=== PATIENT | female | born 1985 | race Caucasian/White ===

== ENCOUNTER → 2020-07-12 10:33 | Outpatient (BNVA) | payer OTHER, SELFPAY | PROVIDERS: PCP Internal Medicine; Visit Provider Advanced Practice Midwife | DX: Z76.89 Persons encountering health services in other specified circumstances (principal) ==

== ENCOUNTER → 2020-07-25 11:07 | Outpatient (BNVA) | payer OTHER, SELFPAY | PROVIDERS: Visit Provider Advanced Practice Midwife | DX: Z30.42 Encounter for surveillance of injectable contraceptive (principal) | CPT/HCPCS: 99211; J1050 ==

== ENCOUNTER → 2020-08-02 10:01 | Outpatient (BNVA) | payer OTHER, SELFPAY | PROVIDERS: Visit Provider Obstetrics & Gynecology | DX: Z76.89 Persons encountering health services in other specified circumstances (principal) ==

== ENCOUNTER → 2020-09-06 11:26 | Outpatient (BNVA) | payer OTHER, SELFPAY | PROVIDERS: PCP Internal Medicine; Visit Provider Obstetrics & Gynecology | DX: Z30.09 Encounter for other general counseling and advice on contraception (principal) | CPT/HCPCS: 99212 ==

== ENCOUNTER 2020-09-29 06:10 | Day surgery (SDC) | payer OTHER, SELFPAY ==
[2020-09-02 12:28] VITALS: BMI 30.4
--- NOTE | 2020-09-07 09:54 | P.CONAN_ITS ---
HPI - Anesthesia Eval Consult details Narrative: 35yo F for bilat Salpingectomy Laproscopic Rescheduled to 09/29/20 [facility] Past Medical History Medical History Depression Hypoglycemia Insomnia Migraine Vitamin B12 deficiency Vitamin D deficiency Family History Family History Father HTN (hypertension) Mother Diabetes mellitus Fibromyalgia Heart disease Acute rheumatoid arthritis Uterine cancer CVD (cardiovascular disease) Maternal Grandmother Uterine cancer Alzheimer disease Paternal Grandfather CVD (cardiovascular disease) Colon cancer Surgical History Surgical History History of 3 sections Hx of adenoidectomy Hx of tonsillectomy Social History Social History Alcohol intake: never Smoking Status: Never smoker Second Hand Smoke Exposure: No Gender identity: female Meds Allergies Allergy/AdvReac Type Severity Reaction Status Date / Time topiramate [TOPIRAMATE] Allergy Intermediate CHEST Verified 09/06/20 11:31 PAIN/A-FIB/RESPIRATORY DISTRESS, palpitations aspirin [ASPIRIN] Allergy Unknown SWOLLEN Verified 09/06/20 11:31 EYES, eye swelling Home Medications Medication Instructions Recorded Confirmed Type cholecalciferol (vitamin D3) 50 50 mcg PO DAILY 07/12/20 History mcg (2,000 unit) tablet ferrous sulfate 325 mg (65 mg 325 mg PO DAILY 07/12/20 History iron) tablet norethindrone (contraceptive) 0.35 0.35 mg PO DAILY 07/12/20 History mg tablet sertraline 25 mg tablet 25 mg PO DAILY 07/12/20 History sumatriptan succinate 50 mg tablet mg PO 07/12/20 History Exam Exam Date and Time: September 07, 2020 0954 Height,Weight and Vital Signs: Height 5 ft 1 in Weight 73.028 kg
--- NOTE | 2020-09-28 09:32 | HO.ANESPROP2 ---
HPI - Anesthesia Eval Consult details Narrative: 35yo F for bilat Salpingectomy Laproscopic PMFSH Past Medical History Medical History Depression Hypoglycemia Insomnia Migraine Vitamin B12 deficiency Vitamin D deficiency Family History Family History Father HTN (hypertension) Mother Diabetes mellitus Fibromyalgia Heart disease Acute rheumatoid arthritis Uterine cancer CVD (cardiovascular disease) Maternal Grandmother Uterine cancer Alzheimer disease Paternal Grandfather CVD (cardiovascular disease) Colon cancer Surgical History Surgical History History of 3 sections Hx of adenoidectomy Hx of tonsillectomy Social History Social History Alcohol intake: never Smoking Status: Never smoker Second Hand Smoke Exposure: No Gender identity: female Meds Allergies Allergy/AdvReac Type Severity Reaction Status Date / Time topiramate [TOPIRAMATE] Allergy Intermediate CHEST Verified 09/06/20 11:31 PAIN/A-FIB/RESPIRATORY DISTRESS, palpitations aspirin [ASPIRIN] Allergy Unknown SWOLLEN Verified 09/06/20 11:31 EYES, eye swelling Home Medications Medication Instructions Recorded Confirmed Type cholecalciferol (vitamin D3) 50 50 mcg PO DAILY 07/12/20 History mcg (2,000 unit) tablet ferrous sulfate 325 mg (65 mg 325 mg PO DAILY 07/12/20 History iron) tablet norethindrone (contraceptive) 0.35 0.35 mg PO DAILY 07/12/20 History mg tablet sertraline 25 mg tablet 25 mg PO DAILY 07/12/20 History sumatriptan succinate 50 mg tablet mg PO 07/12/20 History Exam Exam Date and Time: September 28, 2020 0932 Height,Weight and Vital Signs: Height 5 ft 1 in Weight 73.028 kg Assessment and Plan Assessment Anesthesia Assessment: Chart Reviewed
[2020-09-29] VITALS (10 sets, daily range): BP systolic 107–133; BP diastolic 68–87; PULSE 70–87; RESP 17–20; TEMP 36.4–36.9; O2SAT 96–98
[2020-09-29 06:24] LABS: UPreg QC Valid YES; Urine Pregnancy NEGATIVE (NEGATIVE)
[2020-09-29] MEDS: Lactated Ringers 1,000 ML 100 ML IVCONT (06:37)
[2020-09-29] MEDS: Acetaminophen 325 MG TABLET 650 MG PO (06:37)
--- NOTE | 2020-09-29 07:13 | HO.ANESPROP2 ---
[facility] Past Medical History Medical History Depression Hypoglycemia Insomnia Migraine Vitamin B12 deficiency Vitamin D deficiency Family History Family History Father HTN (hypertension) Mother Diabetes mellitus Fibromyalgia Heart disease Acute rheumatoid arthritis Uterine cancer CVD (cardiovascular disease) Maternal Grandmother Uterine cancer Alzheimer disease Paternal Grandfather CVD (cardiovascular disease) Colon cancer Surgical History Surgical History History of 3 sections Hx of adenoidectomy Hx of tonsillectomy Social History Social History Alcohol intake: never Smoking Status: Never smoker Second Hand Smoke Exposure: No Use of substances other than those prescribed or required for medical reasons: No Advance Directives: No Advance Directives Information Provided: No Advance Directives on File: No Gender identity: female Meds Allergies Allergy/AdvReac Type Severity Reaction Status Date / Time topiramate [TOPIRAMATE] Allergy Intermediate CHEST Verified 09/06/20 11:31 PAIN/A-FIB/RESPIRATORY DISTRESS, palpitations aspirin [ASPIRIN] Allergy Unknown SWOLLEN Verified 09/06/20 11:31 EYES, eye swelling Home Medications Medication Instructions Recorded Confirmed Type cholecalciferol (vitamin D3) 50 50 mcg PO DAILY 07/12/20 History mcg (2,000 unit) tablet ferrous sulfate 325 mg (65 mg 325 mg PO DAILY 07/12/20 History iron) tablet norethindrone (contraceptive) 0.35 0.35 mg PO DAILY 07/12/20 History mg tablet sertraline 25 mg tablet 25 mg PO DAILY 07/12/20 History sumatriptan succinate 50 mg tablet mg PO 07/12/20 History Exam Exam Date and Time: September 29, 2020 0713 Height,Weight and Vital Signs: Height 5 ft 1 in Weight 73.028 kg Last Vital Signs Temp 97.7 F 09/29/20 06:13 Pulse 87 09/29/20 06:13 Resp 18 09/29/20 06:13 BP 133/87 09/29/20 06:13 Pulse Ox 98 09/29/20 06:13 Pertinent Lab Results Pertinent Lab Results: Laboratory Tests 09/29/20 06:10 Urine Test NEGATIVE Airway Mallampati Class: II TM Dist: >3cm Neck ROM: Full Assessment and Plan Assessment Anesthesia Assessment: Anesthesia Plan Discussed and Chart Reviewed Final Anesthetic Review NPO: Yes ASA Class: II Final Preanesthetic Review: No Changes in Pt Med Stat, Meds/Allgs Chart Reviewed, Consent Obtained/Reviewed and Anes Risks/Benef Reviewed Patient Risk: Low Procedure Risk: Low Assessment/Block/Sedation in SS: Assess/Block/Sedation-SS Anesthetic Plan Anesthetic Plan: GA Disposition: Standard PACU
--- NOTE | 2020-09-29 07:18 | MHC.SHP ---
Pre-Procedural Eval Section A The patient is an INPATIENT: No Changes since office visit: No Cold of Flu in the past 2 weeks, No New Medical Problems, No Changes in Medication and No Patient answered all questions The History & Physical has been completed within 30 days and I have reviewed it.: Yes Section B Chief Complaint: permanent sterilization Allergies: Allergies Allergy/AdvReac Type Severity Reaction Status Date / Time topiramate [TOPIRAMATE] Allergy Intermediate CHEST Verified 09/06/20 11:31 PAIN/A-FIB/RESPIRATORY DISTRESS, palpitations aspirin [ASPIRIN] Allergy Unknown SWOLLEN Verified 09/06/20 11:31 EYES, eye swelling Plan I have reviewed the history and physical and performed a pertinent physical examination on my patient. No changes have occurred unless specified.
--- NOTE | 2020-09-29 07:20 | PC.NURSE ---
PT VOIDED PRIOR TO SUGERY
[2020-09-29] MEDS: oxyCODONE HCl Immed Release 5 MG TABLET PO (09:18)
[2020-09-29] MEDS: fentaNYL citrate/PF 100 MCG/2 ML VIAL 50 MCG IVPUSH (09:19)
--- NOTE | 2020-09-29 09:19 | W.PM.OPN ---
Operative Note Operative Note Date of Service: 09/29/20 Narrative: Ms. Madrigal is a 35 year old who has completed her family planning and desires a permanent form of sterilization. Surgical Risks: The patient was informed of the risks and benefits of the procedure. Risks included but were not limited to bleeding, infection, injury to the vulva, vagina, or cervix, and uterine perforation. The patient was counseled on the risk of sterilization failure being about 1% on average. The patient was informed that in the event a occurs, the risk of ectopic is increased. The patient expressed understanding of the risks involved, all questions were answered, and the patient consented to the procedure. The patient had valid sterilization consent at the time of the procedure. The patient was taken to the operating room where a time out was performed to confirm correct patient and correct procedure. General anesthesia was established. The patient was then positioned on the operating table in the dorsal lithotomy position with the legs supported using stirrups. All pressure points were padded and a warm blanket was placed to maintain control of core body temperature. The patient was then prepped and draped in the usual sterile fashion. A red rubber catheter was inserted and minimal urine obtained as she had voided just prior to the procedure. Attention was turned to the abdomen where a 5mm vertical infraumbilical incision was made. The 5mm trocar was introduced under direct visualization using the laparoscopy within the sleeve of the trocar. After intra-abdominal placement had been confirmed, the trocar was removed leaving the sleeve in place. The camera was introduced and pneumoperitoneum was established using carbon dioxide. Inspection of the abdominal cavity showed no evidence of injury to the bowel, bladder, or vasculature. Attention was turned to the pelvis. The patient was placed into Trendelenburg position. An adhesion was noted just left of the midline to the anterior abdominal wall in the pelvis. On the left side, the ovary and tube were adherent to the pelvic side wall. On the right, the tube and ovary appeared grossly normal. A small incision was made approximately 2cm superior and 2cm medial to the left ASIS. A 5mm trocar was introduced through this incision under direct visualization with the laparoscope. A small incision was made approximately 2cm superior and 2cm medial to the right ASIS. A 5mm trocar was introduced through this incision under direct visualization with the laparoscope. The distal end of the right tube was grasped and lifted up and being careful to avoid the ovarian vessels, salpingectomy was performed walking the Ligasure device from the distal to the medial end of the tube, where it was cauterized and cut from the uterus at the cornua and removed through the trocar. Attention was then turned to the left, where the fimbriated end of the tube was visual as well as the cornual end; however, the intervening portion was engulfed in scar tissue and adherent to the pelvic side wall. The fimbriated end of the tube was grasped and used to reflect the ovary away from the side wall, where the adhesion was noted to be able to be seen through. This was dissected sharply with the Ligasure, being careful to avoid the ovarian vessels. The fimbriated end of the tube was dissected from the scar tissue using the Ligasure device. Once the ovary was freed from the side wall, the remaining portion of the tube was then visible and salpingectomy of the remaining tube was performed walking the Ligasure device from the distal to the medial end of the tube, where it was cauterized and cut from the uterus at the cornua and removed through the trocar. The tubes were sent to pathology for analysis. The ovary was inspected and good hemostasis noted; there was dark blood noted at the side wall and the lateral cut end of the scar tissue. No active bleeding was identified but the area appeared red. Surgicel was applied and good hemostasis noted. The pneumoperitoneum was then evacuated. The laparoscope was removed and the trocar sleeves were removed. A total of 20cc Bupivicaine 0.5% was injected through the three incisions for local anesthesia. The skin incisions were closed with a single interrupted stitch using 3-0 vicryl and Dermabond was then applied. Good hemostasis was confirmed. The patient was transferred to the recovery room in stable condition. All needle, sponge, and instrument counts were noted to be correct x2 at the end of the procedure.
--- NOTE | 2020-09-29 11:20 | HO.POSTANES ---
Post Anesthesia Evaluation Post Anesthesia Evaluation Vital Signs: Vital Signs Temp Pulse Resp BP Pulse Ox 09/29/20 10:06 97.6 F 74 17 117/71 97 09/29/20 09:51 97.6 F 77 17 112/70 97 09/29/20 09:36 70 17 114/69 96 09/29/20 09:26 72 19 107/68 96 09/29/20 09:21 72 18 115/77 96 09/29/20 09:19 17 09/29/20 09:16 74 17 126/75 96 09/29/20 09:11 79 17 126/83 98 09/29/20 09:06 98.4 F 85 20 132/84 97 09/29/20 06:13 97.7 F 87 18 133/87 98 Anesthesia: General Endotracheal-GETA Mental Status: Awake Pain Control: Satisfactory Nausea/Vomiting: None Hydration: Adequate Anesthesia-Related Issues: No Anes. Related Issues
== END 2020-09-29 10:24 | disposition home or self-care (01) ==
LOC: HO.SSS 06:10
PROVIDERS: Nurse Practitioner; PCP Internal Medicine; Visit Provider Obstetrics & Gynecology
PROC: (CPT 58661; principal; 2020-09-29 07:30)
DX: Z30.2 Encounter for sterilization (principal); K66.0 Peritoneal adhesions (postprocedural) (postinfection); Z80.49 Family history of malignant neoplasm of other genital organs; Z88.8 Allergy status to other drugs, medicaments and biological substances
CPT/HCPCS: 58661; 81025; 88302; J0131; J1100; J1885; J2250; J2405; J3010

== ENCOUNTER 2021-09-14 10:32 | Outpatient (REF) | payer OTHER, SELFPAY ==
[2021-09-14 10:51] LABS: MANUAL DIFF FLAG NO
[2021-09-14 11:09] LABS: Basophils Percent Auto 0.1 % (0-2); Hematocrit 36.2 % (37.0-47.0); Hemoglobin 11.5 g/dl (12.0-16.0); Imm Gran Abs Auto 0.02 X10*3/uL (0.00-0.03); Imm Gran Pct Auto 0.3 % (0.0-0.4); Lymphocytes Absolute Auto 2.2 X10*3/uL (1.2-4.9); Lymphocytes Percent Auto 29.4 % (20-40); Mean Corpuscular HGB Conc 31.8 g/dl (31.0-35.0); Mean Corpuscular Hemoglobin 25.3 pg (27.0-33.0); Mean Corpuscular Volume 79.6 fL (80.0-98.0); Mean Platelet Volume 10.4 fL (9.4-12.3); Monocytes Absolute Auto 0.5 X10*3/uL (0.1-1.2); Monocytes Percent Auto 6.1 % (2-11); Neutrophils Absolute Auto 4.7 x10*3/uL (2.0-8.3); Neutrophils Percent Auto 64.1 % (45-73); Platelet Count 247 X10*3/uL (160-400); Red Blood Count 4.55 X10*6/uL (4.20-5.50); Red Cell Distribution Width 13.6 % (11.0-16.0); White Blood Count 7.3 X10*3/uL (4.8-10.8)
[2021-09-14 11:57] LABS: Alanine Aminotransferase 39 U/L (0-31); Alkaline Phosphatase 129 U/L (39-117); Anion Gap 12 (12-20); Aspartate Amino Transferase 20 U/L (5-31); Bilirubin Total 0.5 mg/dL (0.0-1.0); Blood Urea Nitrogen 6 mg/dL (9-16); Calcium 9.1 mg/dL (8.4-10.2); Carbon Dioxide 24 mmol/L (22-29); Chloride 107 mmol/L (96-108); Cholesterol 165 mg/dL; Estimated Glomerular Filt Rate > 60; Glucose Fasting 107 mg/dL (60-99); HDL Cholesterol 31 mg/dL; Iron 50 mcg/dL (30-160); LDL Cholesterol Calculated 71 mg/dl; Percent Iron Saturation 11 % (15-50); Potassium 3.9 mmol/L (3.3-5.1); Sodium 139 mmol/L (135-145); Total Iron Binding Capacity 463 mcg/dL (228-428); Total Protein 7.1 g/dL (6.5-8.0); Triglycerides 316 mg/dL; Unsaturated Iron Binding 413 ug/dL
[2021-09-14 11:58] LABS: Thyroid Stimulating Hormone 1.16 uIU/mL (0.32-4.0)
[2021-09-14 12:24] LABS: Folate 15.7 ng/mL (> or = 4.0); Vitamin B12 281 pg/mL (200-900)
[2021-09-18 16:17] LABS: Vitamin D 25-OH, D2 <4 ng/mL; Vitamin D 25-OH, D3 11 ng/mL; Vitamin D 25-OH, Total 11 ng/mL (30-100)
== END 2021-09-14 10:33 | disposition home or self-care (01) ==
LOC: HO.LAB 10:32
PROVIDERS: PCP Internal Medicine; Visit Provider Internal Medicine
DX: E53.8 Deficiency of other specified B group vitamins (principal); E66.9 Obesity, unspecified; D64.9 Anemia, unspecified; E55.9 Vitamin D deficiency, unspecified
CPT/HCPCS: 36415; 80053; 80061; 82306; 82607; 82746; 83540; 84443; 85025

== ENCOUNTER 2021-11-27 09:23 | Outpatient (REF) | payer OTHER, SELFPAY ==
[2021-11-27 10:24] LABS: MANUAL DIFF FLAG NO
[2021-11-27 10:39] LABS: Basophils Percent Auto 0.2 % (0-2); Hematocrit 37.8 % (37.0-47.0); Hemoglobin 12.1 g/dl (12.0-16.0); Imm Gran Abs Auto 0.02 X10*3/uL (0.00-0.03); Imm Gran Pct Auto 0.2 % (0.0-0.4); Lymphocytes Absolute Auto 1.7 X10*3/uL (1.2-4.9); Lymphocytes Percent Auto 19.4 % (20-40); Mean Corpuscular Hemoglobin 24.7 pg (27.0-33.0); Mean Corpuscular Volume 77.1 fL (80.0-98.0); Mean Platelet Volume 10.7 fL (9.4-12.3); Monocytes Absolute Auto 0.4 X10*3/uL (0.1-1.2); Neutrophils Absolute Auto 6.7 x10*3/uL (2.0-8.3); Neutrophils Percent Auto 76.2 % (45-73); Platelet Count 274 X10*3/uL (160-400); White Blood Count 8.8 X10*3/uL (4.8-10.8)
[2021-11-27 10:42] LABS: INTERNATIONAL NORM RATIO 1.1 (0.9-1.1); Prothrombin Time 12.2 SEC (9.9-13.0)
[2021-11-27 11:15] LABS: Alanine Aminotransferase 21 U/L (0-31); Albumin Level 4.5 g/dL (3.5-5.0); Alkaline Phosphatase 122 U/L (39-117); Anion Gap 11 (12-20); Aspartate Amino Transferase 14 U/L (5-31); Bilirubin Total 0.4 mg/dL (0.0-1.0); Blood Urea Nitrogen 9 mg/dL (9-16); Calcium 9.7 mg/dL (8.4-10.2); Carbon Dioxide 21 mmol/L (22-29); Chloride 108 mmol/L (96-108); Estimated Glomerular Filt Rate > 60; Glucose Random 154 mg/dL (60-115); Potassium 3.8 mmol/L (3.3-5.1); Sodium 136 mmol/L (135-145); Total Protein 7.6 g/dL (6.5-8.0)
[2021-11-27 11:21] LABS: HBc Num1 0.16 S/CO (0.00-0.79); Hepatitis B Core Antibody Nonreactive (Nonreactive); Hepatitis B Surface Antigen Negative (Negative)
[2021-11-27 11:23] LABS: Ferritin 12 ng/mL (10-122)
[2021-11-27 11:24] LABS: HBS Num1 > 1000.00 mIU/mL (0-7.99); ~HepC Num1 0.31 S/CO (0.00-0.79); ~Hepatitis B Surface Antibody REACTIVE (Nonreactive); ~Hepatitis C Antibody Nonreactive (Nonreactive)
[2021-11-27 12:10] LABS: Folate 15.4 ng/mL (> or = 4.0); Vitamin B12 290 pg/mL (200-900)
[2021-11-29 09:04] LABS: Hepatitis A Antibody IgM 0.16 Index (0-0.79); ~Hepatitis A Antibody IgM Nonreactive (Nonreactive)
[2021-11-29 12:27] LABS: Anti Nuclear Antibody Screen NEGATIVE (NEGATIVE)
[2021-11-30 11:50] LABS: Alpha 1 Anti-trypsin 100 mg/dL (83-199); Immunoglobulin G 1197 mg/dL (600-1640)
[2021-11-30 12:26] LABS: Mitochondrial Antibodies NEGATIVE (NEGATIVE)
[2021-12-01 16:11] LABS: Zinc 75 mcg/dL (60-130)
[2021-12-01 19:46] LABS: FIB-ALT 20 U/L (6-29); FIB-Alpha-2-Macroglobulin 203 mg/dL (106-279); FIB-Apolipoprotein A1 124 mg/dL (101-198); FIB-GGT 18 U/L (3-50); FIB-Haptoglobin 197 mg/dL (43-212); FIB-Total Bilirubin 0.4 mg/dL (0.2-1.2); Liver Fibrosis Stage F0; Nec Inflam Act Grade A0; Nec Inflam Act Score 0.06
[2021-12-02 14:31] LABS: Vitamin C 0.8 mg/dL (0.3-2.7)
[2021-12-03 22:36] LABS: Vitamin A 45 mcg/dL (38-98)
[2021-12-04 13:31] LABS: Liver Kidney Microsomal Ab <=20.0 U (<=20.0)
[2021-12-04 13:56] LABS: Smooth Muscle Antibody <20 U (<20)
== END 2021-11-27 09:24 | disposition home or self-care (01) ==
LOC: HO.LAB 09:23
PROVIDERS: PCP Internal Medicine; Referring Provider Internal Medicine; Visit Provider Internal Medicine Gastroenterology
DX: K76.9 Liver disease, unspecified (principal); R10.11 Right upper quadrant pain; R79.89 Other specified abnormal findings of blood chemistry; R79.82 Elevated C-reactive protein (CRP); K75.81 Nonalcoholic steatohepatitis (NASH); K52.839 Microscopic colitis, unspecified
CPT/HCPCS: 36415; 80053; 81596; 82103; 82180; 82607; 82728; 82746; 82784; 84590; 84630; 85025; 85610; 86015; 86038; 86039; 86255; 86256; 86376; 86704; 86706; 86709; 86803; 87340; 99202

== ENCOUNTER 2022-01-01 09:05 | Outpatient (REF) | payer OTHER, SELFPAY ==
--- NOTE | ~2022-01-01 | US_ITS ---
EXAMINATION: US COMPLETE ABDOMEN WITH LIVER ELASTOGRAPHY CLINICAL INFORMATION: Right upper quadrant pain. Liver disease. COMPARISON: None. TECHNIQUE: Real-time imaging of the abdominal viscera. Noninvasive ultrasound liver fibrosis assessment is performed using Devon ElastPQ point quantification shear wave elastography (2D-SWE) with a C5-2 MHz transducer. Multiple elastography samples are obtained. FINDINGS: PANCREAS: Normal. The visualized pancreatic head and body are normal in appearance. The remainder of the pancreas is obscured from visualization by the overlying bowel gas. ABDOMINAL AORTA: The proximal, middle, and distal aortic segments are normal in caliber. INFERIOR VENA CAVA: Visualized portions are normal. LIVER: The liver is diffusely echogenic and heterogeneous. There are multiple hypoechoic areas largest in the anterior right lower lobe measuring 2.5 x 1.5 x 2.26 cm. Question focal fatty sparing versus other etiologies. The right lobe measures 15.1 cm in length. The left lobe measures 8.8 cm in length. Portal flow is hepatopedal. Shear wave liver elastography median stiffness is 1.22 m/s (reference: normal median stiffness is 1.3 m/s or less). IQR/median stiffness to assess sampling precision is 0.14 (reference: good quality data set is IQR/median stiffness of 0.15 or less). GALLBLADDER: Normal. The gallbladder is physiologically distended without evidence of stones, sludge, polyps, wall thickening or pericholecystic fluid. COMMON BILE DUCT: Normal in caliber measuring 0.2 cm in diameter. RIGHT KIDNEY: Normal. No hydronephrosis. No renal calculi or focal parenchymal lesions. The kidney measures 10.7 cm in maximum dimension. LEFT KIDNEY: Normal. No hydronephrosis. No renal calculi or focal parenchymal lesions. The kidney measures 11.1 cm in maximum dimension. SPLEEN: Normal. The spleen measures 11.1 cm in maximum dimension. FREE FLUID: None. US/US abdomen comp w elastography IMPRESSION: 1. Diffuse hepatic steatosis with areas of focal fatty sparing. No intrahepatic ductal dilatation. 2. The rest of the abdominal ultrasound is unremarkable. 3. Liver elastography: Median liver stiffness measures 1.22 m/s, suggestive of high probability normal exam. REFERENCE: Society of Radiologists in Ultrasound Liver Stiffness Thresholds (2020): LIVER STIFFNESS THRESHOLDS: *Liver Stiffness equal or less than 1.3 m/s: High probability of being normal. *Liver Stiffness less than 1.7 m/s: In the absence of other known clinical signs, rules out compensated advanced chronic liver disease. *Liver Stiffness 1.7-2.1 m/s: Suggestive of compensated advanced chronic liver disease but need further test for confirmation. *Liver Stiffness over 2.1 m/s: Rules in compensated advanced chronic liver disease. *Liver Stiffness over 2.4 m/s: Suggestive of clinically significant portal hypertension. QUALITY OF DATA SET: *IQR/Median value equal or less than 0.15 implies a quality data set. *IQR/Median value over 0.15 implies a poor quality data set. SIGNIFICANT CHANGE FROM PRIOR EXAM: Significant change if liver stiffness measurement is 10% or greater from prior exam. OTHER CONSIDERATIONS: The stage of liver fibrosis may be overestimated in the setting of acute hepatitis, liver inflammation, elevated liver function tests, hepatic vascular congestion, obstructive cholestasis, non-fasting state, and infiltrative diseases such as amyloidosis and lymphoma. In some patients with NAFLD, the liver stiffness thresholds for compensated advanced chronic liver disease may be lower. In causes other than viral hepatitis and NAFLD, liver stiffness thresholds are not well established.
== END 2022-01-01 09:06 | disposition home or self-care (01) ==
LOC: HO.US 09:05
PROVIDERS: Visit Provider Internal Medicine Gastroenterology
DX: R10.11 Right upper quadrant pain (principal); K76.9 Liver disease, unspecified; R79.89 Other specified abnormal findings of blood chemistry
CPT/HCPCS: 76705; 76981

== ENCOUNTER → 2022-04-20 10:29 | Outpatient (BNVA) | payer OTHER, SELFPAY | PROVIDERS: PCP Internal Medicine; Referring Provider Internal Medicine; Visit Provider Internal Medicine Gastroenterology | DX: K76.9 Liver disease, unspecified (principal); R79.89 Other specified abnormal findings of blood chemistry | CPT/HCPCS: 99212 ==

== ENCOUNTER 2022-04-20 12:12 | Outpatient (REF) | payer OTHER, SELFPAY ==
[2022-04-24 11:27] LABS: H Pylori Breath Test Negative (Negative)
== END 2022-04-20 12:13 | disposition home or self-care (01) ==
LOC: HO.LNP 12:12
PROVIDERS: Visit Provider Internal Medicine Gastroenterology
DX: R10.11 Right upper quadrant pain (principal); K76.9 Liver disease, unspecified; R79.89 Other specified abnormal findings of blood chemistry
CPT/HCPCS: 83013; 99212

== ENCOUNTER 2022-05-07 13:16 | Outpatient (REF) | payer OTHER, SELFPAY ==
--- NOTE | ~2022-05-07 | MR_ITS ---
EXAMINATION: MR ABDOMEN WITHOUT AND WITH CONTRAST CLINICAL INFORMATION: Liver disease. Abnormal liver function tests. Question liver lesion on ultrasound. COMPARISON: Previous abdominal ultrasound August and December 2021. TECHNIQUE: MR abdomen was performed without and with use of 7 mL intravenous Gadavist contrast. Postcontrast images are performed in multiphase dynamic sequences. Imaging was performed in 3 planes. FINDINGS: LUNG BASES: The visualized lung bases are unremarkable. LIVER, GALLBLADDER, AND BILIARY TREE: The liver is slightly enlarged. There is fatty infiltration of the liver and areas of focal fatty sparing. There is a focal lesion in the anterior segment of the right lobe of the liver. This is slightly increased on T2-weighted sequences and appears bright on out of phase gradient echo sequences but probably because there is significant fatty infiltration of the liver around the lesion not because is truly high signal. This demonstrates slightly heterogeneous early arterial phase enhancement and remains enhanced with respect to the liver on later sequences. This measures 1.3 x 2 cm. No other liver lesion. Normal gallbladder. No intrahepatic or extrahepatic biliary duct dilatation. PANCREAS: Unremarkable. SPLEEN: There is a small 1 cm cyst exophytic to the superior spleen. The spleen is otherwise normal. ADRENAL GLANDS: Normal . KIDNEYS AND URETERS: The kidneys are normal in size, shape, and enhance symmetrically. No hydronephrosis. No perinephric stranding. GASTROINTESTINAL TRACT: Diverticulosis of the colon. No bowel obstruction. No ascites or fluid collection. ABDOMINAL WALL: Diastasis of the rectus muscles and small umbilical hernia containing fat. LYMPH NODES: No lymphadenopathy. VASCULAR: Unremarkable. OSSEOUS STRUCTURES: Marrow signal normal. MR/MR abdomen wo/w con IMPRESSION: Slightly enlarged and fatty liver with areas of focal fatty sparing. 1.3 x 2 cm lesion in the anterior segment of the right lobe of the liver. MR appearance is not suggestive of a hemangioma. FNH and adenoma should be considered. If the patient is on oral contraceptive medicine, stopping this medicine should be considered. Short-term followup exam with E[facility]ist in 6 months is recommended.
== END 2022-05-07 13:17 | disposition home or self-care (01) ==
LOC: HO.MRI 13:16
PROVIDERS: Visit Provider Internal Medicine Gastroenterology
DX: K76.9 Liver disease, unspecified (principal); R79.89 Other specified abnormal findings of blood chemistry
CPT/HCPCS: 74183; A9585

== ENCOUNTER 2022-08-09 10:18 | Day surgery (SDC) | payer OTHER, SELFPAY ==
--- NOTE | 2022-08-08 13:51 | HO.ANESPROP2 ---
Documented by User: Filomena Adams NP 08/08/22 13:53 HPI - Anesthesia Eval Consult details Narrative: 37yo F for Upper Endoscopy and Colonoscopy PMFSH Active Problems Active Problems: All Active Problems (Updated 06/28/22 @ 11:58 by DANNY Carcamo) Neck pain (Acute) RUQ pain (Acute) Abnormal LFTs (Acute) Liver lesion (Acute) Migraine (Acute) Vitamin D deficiency (Acute) Mild recurrent major depression (Acute) Obesity (BMI 30-39.9) (Acute) Vitamin B12 deficiency (Acute) Unwanted fertility (Acute) Depot contraception (Acute) control counseling (Acute) Well woman exam with routine gynecological exam (Acute) Past Medical History Medical History Depression Hypoglycemia Insomnia Liver lesion Migraine Mild recurrent major depression Obesity (BMI 30-39.9) Vitamin B12 deficiency Vitamin D deficiency Family History Family History Father HTN (hypertension) Mother Diabetes mellitus Fibromyalgia Heart disease Acute rheumatoid arthritis Uterine cancer CVD (cardiovascular disease) Maternal Grandmother Uterine cancer Alzheimer disease Mental health disorder Paternal Grandfather CVD (cardiovascular disease) Colon cancer Surgical History Surgical History (Updated 08/08/22 @ 13:52 by Filomena Adams NP) H/O bilateral salpingectomy History of 3 sections Hx of adenoidectomy Hx of tonsillectomy Social History Social History Housing: Apartment Alcohol intake: current Alcohol intake frequency: a few times a month Alcohol type: beer and wine Patient Tobacco Use Status: Never used Tobacco e-Cigarette/Vaping Use: Never Used Second Hand Smoke Exposure: No Substance Use Frequency: Occasionally Are you DNR?: No Advance Directives: No Advance Directives Information Provided: Yes Nutrition Risks: No Nutritional Risk Patient : No FDLMP: last week service: No Current occupational status: unemployed Gender identity: Female Cognitive needs: No Hearing needs: No Vision needs: No Meds Allergies Allergy/AdvReac Type Severity Reaction Status Date / Time topiramate [TOPIRAMATE] Allergy Intermediate CHEST Verified 08/09/22 11:16 PAIN/A-FIB/RESPIRATORY DISTRESS, palpitations aspirin [ASPIRIN] Allergy Unknown SWOLLEN Verified 08/09/22 11:16 EYES, eye swelling Home Medications Medication Instructions Recorded Confirmed Last Taken Type cholecalciferol (vitamin D3) 50 50 mcg PO DAILY 07/12/20 08/03/22 Unknown History mcg (2,000 unit) tablet ferrous sulfate 325 mg (65 mg 325 mg PO DAILY 07/12/20 08/03/22 08/06/22 History iron) tablet sertraline 25 mg tablet 25 mg PO DAILY 07/12/20 08/03/22 Unknown History trazodone 50 mg tablet 50 mg PO BEDTIME 06/28/22 08/03/22 Unknown History Exam Exam Date and Time: August 08, 2022 1351 Pertinent Lab Results Pertinent Lab Results: Laboratory Tests 11/27/21 11/27/21 10:18 10:18 WBC 8.8 Hgb 12.1 Hct 37.8 Plt Count 274 Sodium 136 Potassium 3.8 Chloride 108 Carbon Dioxide 21 L BUN 9 Creatinine 0.77 Assessment and Plan Assessment Anesthesia Assessment: Chart Reviewed Documented by User: Matilde Casillas MD 08/09/22 11:28 [facility] Past Medical History Medical History Depression Hypoglycemia Insomnia Liver lesion Migraine Mild recurrent major depression Obesity (BMI 30-39.9) Vitamin B12 deficiency Vitamin D deficiency Narrative: TL Family History Family History Father HTN (hypertension) Mother Diabetes mellitus Fibromyalgia Heart disease Acute rheumatoid arthritis Uterine cancer CVD (cardiovascular disease) Maternal Grandmother Uterine cancer Alzheimer disease Mental health disorder Paternal Grandfather CVD (cardiovascular disease) Colon cancer Family history of problems with anesthesia: No Surgical History Surgical History (Updated 08/08/22 @ 13:52 by Filomena Adams NP) H/O bilateral salpingectomy History of 3 sections Hx of adenoidectomy Hx of tonsillectomy History of Problems with Anesthesia: No Social History Social History (Reviewed 06/28/22 @ 11:48 by ARIEL Carcamo Housing: Apartment Alcohol intake: current Alcohol intake frequency: a few times a month Alcohol type: beer and wine Patient Tobacco Use Status: Never used Tobacco e-Cigarette/Vaping Use: Never Used Second Hand Smoke Exposure: No Substance Use Frequency: Occasionally Are you DNR?: No Advance Directives: No Advance Directives Information Provided: Yes Nutrition Risks: No Nutritional Risk Patient : No FDLMP: last week service: No Current occupational status: unemployed Gender identity: Female Cognitive needs: No Hearing needs: No Vision needs: No Meds Allergies Allergy/AdvReac Type Severity Reaction Status Date / Time topiramate [TOPIRAMATE] Allergy Intermediate CHEST Verified 08/09/22 11:16 PAIN/A-FIB/RESPIRATORY DISTRESS, palpitations aspirin [ASPIRIN] Allergy Unknown SWOLLEN Verified 08/09/22 11:16 EYES, eye swelling Home Medications Medication Instructions Recorded Confirmed Last Taken Type cholecalciferol (vitamin D3) 50 50 mcg PO DAILY 07/12/20 08/03/22 Unknown History mcg (2,000 unit) tablet ferrous sulfate 325 mg (65 mg 325 mg PO DAILY 07/12/20 08/03/22 08/06/22 History iron) tablet sertraline 25 mg tablet 25 mg PO DAILY 07/12/20 08/03/22 Unknown History trazodone 50 mg tablet 50 mg PO BEDTIME 06/28/22 08/03/22 Unknown History Exam Airway Mallampati Class: II TM Dist: >3cm Neck ROM: Full Loose/Missing/Broken Teeth: Yes (28) Heart: rrr Lungs: cta Assessment and Plan Final Anesthetic Review Family History of Problems with Anesthesia: No History of Problems with Anesthesia: No NPO: Yes ASA Class: II Final Preanesthetic Review: No Changes in Pt Med Stat and Consent Obtained/Reviewed Patient Risk: Low Procedure Risk: Low Anesthetic Plan Anesthetic Plan: MAC: Disposition: Standard PACU
[2022-08-09 10:40] VITALS: BMI 29.5
[2022-08-09 10:48] LABS: UPreg QC Valid YES; Urine Pregnancy NEGATIVE (NEGATIVE)
[2022-08-09] MEDS: Lactated Ringers 1,000 ML 100 ML IVCONT (10:48)
--- NOTE | 2022-08-09 10:48 | MHC.SHP ---
Pre-Procedural Eval Section A Date of Service: 08/09/22 Section B Chief Complaint: Liver disease,abnormal findings Relevant Family History (Specify if Yes): No Relevant Social History: None Present Medications: see Short Stay Collaborative assessment Medical History: Significant History (Depression Hypoglycemia Insomnia Liver lesion Migraine Mild recurrent major depression Obesity (BMI 30-39.9) Vitamin B12 deficiency Vitamin D deficiency) History of Previous Operations: Relevant previous surgery/procedure and date(s) (H/O bilateral salpingectomy History of 3 sections Hx of adenoidectomy Hx of tonsillectomy) Allergies: Allergies Allergy/AdvReac Type Severity Reaction Status Date / Time topiramate [TOPIRAMATE] Allergy Intermediate CHEST Verified 08/03/22 15:38 PAIN/A-FIB/RESPIRATORY DISTRESS, palpitations aspirin [ASPIRIN] Allergy Unknown SWOLLEN Verified 08/03/22 15:38 EYES, eye swelling Plan I have reviewed the history and physical and performed a pertinent physical examination on my patient. No changes have occurred unless specified. Time Spent With Patient Time: Total time managing care of this patient today ____ minutes.
[2022-08-09 10:50] VITALS: BP 158/94; PULSE 89; RESP 18; TEMP 36.3; O2SAT 98
--- NOTE | 2022-08-09 11:38 | P.OP_ITS ---
Operative Note Operative Note Date of Service: 08/09/22 Narrative: Operative Information Procedure Description: EGD, Colonoscopy Indication: diarrhea Anesthesia: MAC FLEXIBLE TRANSORAL UPPER GASTROINTESTINAL ENDOSCOPY AND COLONOSCOPY PROCEDURE NOTE UPPER ENDOSCOPY Consent: Indications for the procedure and potential complications of bleeding, perforation, reaction to medications and missed diagnosis were discussed with the patient and informed consent was obtained. Instrument: Olympus GIF H 190 J mid size upper endoscope Monitoring: Vital signs and clinical assessment, continuous EKG monitoring, Pulse oximetry, Carbon Dioxide monitoring and blood pressure monitoring were done throughout the procedure. Procedure: The patient was placed in the left lateral decubitis position and pre-procedure medications were administered and a bite block was placed. The endoscope was inserted into the mouth and advanced under direct vision to the third part of duodenum. A careful inspection was made as the upper endoscope was withdrawn including a retroflexed examination of the proximal stomach; Findings and interventions are described below. Findings: Larynx:normal Esophagus: GE junction at 35 cm, diaphragm hiatus at 35 cm, midl esophagitis, bx taken from GEJ and distal esophagus Stomach: mile erythema. Biopsies were obtained. Grade 2 flap valve on retroflexed examination of the cardia. also it seemed as if the anterior stomach was being extrinsically compressed, some retained food noted Duodenum: Normal bulb and descending duodenum, bx taken Intervention: Biopsies as noted above COLONOSCOPY Instrument: Olympus variable stiffness pediatric scope 190L Colonoscopy Monitoring: Vital signs and clinical assessment, continuous EKG monitoring, Pulse oximetry, Carbon Dioxide monitoring and blood pressure monitoring were done throughout the procedure. Colon withdrawal time was 9 minutes. Procedure: The patient was placed in the left lateral decubitis position and pre-procedure medications were administered. After a digital rectal examination of the ano-rectum, the video colonoscope was inserted into the rectum and advanced through the colon to the cecum/TI. The colonoscope was slowly withdrawn in a retrograde panoramic fashion and the colon mucosa was carefully examined including a retroflexed view of the rectum. Findings and interventions are described below. Procedure Difficulty: easy Findings: Terminal Ileum-normal, bx taken random colon bx taken Cecum:normal Ascending Colon: 10 mm sessile polyp removed with cold snare Transverse Colon -normal Descending Colon:normal Sigmoid Colon: mild diverticulosis Rectum: Retroflexion with small internal hemorrhoids, grade I Anorectum - normal Colon preparation: [place] Bowel Preparation Scale Right colon; 2 Transverse colon: 3 Left colon; 3 (0 = Unprepared colon segment with mucosa not seen due to solid stool that cannot be cleared. 1 = Portion of mucosa of the colon segment seen, but other areas of the colon segment not well seen due to staining, residual stool and/or opaque liquid. 2 = Minor amount of residual staining, small fragments of stool and/or opaque liquid, but mucosa of colon segment seen well. 3 = Entire mucosa of colon segment seen well with no residual staining, small fragments of stool or opaque liquid) Impression and Post Procedure Diagnosis: Endoscopy Findings: gastritis esophagitis possible extrinsic compression of stomach vs gastroparesis Colonoscopy Findings: polyp internal hemorrhoids diverticular disease Plan: Await Pathology results Repeat Colonoscopy in 5-7 years if pre cancerous polyp, 10 yrs if benign or earlier if clinically indicated High fiber diet leaflet avoid straining at stool, epsom salts and sitz bath, anusol supps or cream consider CT imaging with PO contrast or mesenteric duplex --will wait for biopsies first before deciding on this Above findings were reviewed with the patient and relevant handouts were provided if indicated.
[2022-08-09 12:31] VITALS: BP 115/87; PULSE 96; RESP 18; TEMP 36.2; O2SAT 98
[2022-08-09 12:46] VITALS: BP 129/63; PULSE 82; RESP 14; O2SAT 100
[2022-08-09 12:57] VITALS: BP 132/88; PULSE 81; RESP 16; TEMP 36.2; O2SAT 100
[2022-08-09 14:01] LABS: CDiff Gene PCR NEGATIVE (Negative)
[2022-08-09 15:04] LABS: Adenovirus F 40/41 Not Detected (Not Detect.); Astrovirus Not Detected (Not Detect.); Campylobacter Not Detected (Not Detect.); Cryptosporidium Not Detected (Not Detect.); Cyclospora cayetanensis Not Detected (Not Detect.); E. coli EAEC Not Detected (Not Detect.); E. coli EPEC Not Detected (Not Detect.); E. coli ETEC Not Detected (Not Detect.); E. coli STEC Not Detected (Not Detect.); Entamoeba histolytica Not Detected (Not Detect.); Giardia lamblia Not Detected (Not Detect.); Norovirus GI/GII Not Detected (Not Detect.); Plesiomonas shigelloides Not Detected (Not Detect.); Rotavirus A Not Detected (Not Detect.); Salmonella Not Detected (Not Detect.); Sapovirus Not Detected (Not Detect.); Shigella sp./EIEC Not Detected (Not Detect.); Vibrio Not Detected (Not Detect.); Vibrio Cholerae Not Detected (Not Detect.); Yersinia enterocolitica Not Detected (Not Detect.)
== END 2022-08-09 13:27 | disposition home or self-care (01) ==
PROVIDERS: Nurse Practitioner; PCP Internal Medicine; Visit Provider Internal Medicine Gastroenterology
PROC: (CPT 45385; principal; 2022-08-09 10:50)
DX: R19.7 Diarrhea, unspecified (principal); D12.2 Benign neoplasm of ascending colon; K57.30 Diverticulosis of large intestine without perforation or abscess without bleeding; K64.0 First degree hemorrhoids; K76.9 Liver disease, unspecified; E16.2 Hypoglycemia, unspecified; K29.70 Gastritis, unspecified, without bleeding; K20.80 Other esophagitis without bleeding; E66.9 Obesity, unspecified; Z68.29 Body mass index [BMI] 29.0-29.9, adult; E55.9 Vitamin D deficiency, unspecified; E53.8 Deficiency of other specified B group vitamins; Z79.899 Other long term (current) drug therapy; Z88.8 Allergy status to other drugs, medicaments and biological substances
CPT/HCPCS: 45385; 45380; 43239; 81025; 87493; 87507; 88305; 88342

== ENCOUNTER → 2022-08-31 10:40 | Outpatient (BNVA) | payer OTHER, SELFPAY | PROVIDERS: PCP Internal Medicine; Visit Provider Internal Medicine Gastroenterology | DX: K75.81 Nonalcoholic steatohepatitis (NASH) (principal); R19.7 Diarrhea, unspecified; R11.0 Nausea | CPT/HCPCS: 99212 ==

== ENCOUNTER 2022-10-31 12:56 | Outpatient (REF) | payer OTHER, SELFPAY ==
--- NOTE | ~2022-10-31 | MR_ITS ---
EXAMINATION: MR ABDOMEN WITHOUT AND WITH CONTRAST CLINICAL INFORMATION: Liver lesion. COMPARISON: 05/07/2022 TECHNIQUE: MR abdomen was performed without and with use of 7 mL intravenous Eovist gadolinium contrast. Postcontrast images are performed in multiphase dynamic sequences. Imaging was performed in 3 planes. FINDINGS: LUNG BASES: The visualized lung bases are unremarkable. LIVER, GALLBLADDER, AND BILIARY TREE: Normal size and shape of the liver. Signal dropout on out of phase imaging, consistent with hepatic steatosis. No biliary ductal dilatation. There is a 1.5 x 0.8 cm arterially enhancing lesion in segment 4A of the liver, series 100 image 30. This is faintly T2 bright. This is not clearly seen on T1-weighted imaging. On the delayed postcontrast images this remains enhancing, including in the 20 minute delayed acquisition. This is therefore consistent with focal nodular hyperplasia. There is a separate area that is also faintly T2 bright posteriorly in the right lobe of the liver in segment 6 which demonstrates brisk arterial enhancement. This measures 1 cm on image 47 of series 100. This also retained contrast enhancement on the 20 minute delayed acquisition. The gallbladder is unremarkable with no evidence of gallbladder wall thickening, or obvious pericholecystic inflammatory changes. PANCREAS: Unremarkable. SPLEEN: Normal. ADRENAL GLANDS: Normal. KIDNEYS AND URETERS: The kidneys are normal in size, shape, and enhance symmetrically. No hydronephrosis. No perinephric stranding. GASTROINTESTINAL TRACT: No bowel obstruction. No ascites or fluid collection. ABDOMINAL WALL: No significant hernia is appreciated. LYMPH NODES: No lymphadenopathy. VASCULAR: Unremarkable. OSSEOUS STRUCTURES: Marrow signal normal. MR/MR abdomen wo/w con IMPRESSION: 1. 1.5 cm lesion in segment 4A of the liver with enhancement characteristics consistent with focal nodular hyperplasia. No specific follow-up recommended. 2. 1 cm lesion in segment 6 of the liver with enhancement characteristics suggestive of focal nodular hyperplasia. No specific follow-up recommended. 3. Hepatic steatosis.
[2022-10-31] MEDS: Gadoxetate Disodium 10 ML VIAL IVPUSH (14:21)
== END 2022-10-31 12:57 | disposition home or self-care (01) ==
LOC: HO.MRI 12:56
PROVIDERS: PCP Internal Medicine; Visit Provider Internal Medicine Gastroenterology
DX: R10.11 Right upper quadrant pain (principal); R79.89 Other specified abnormal findings of blood chemistry; K76.9 Liver disease, unspecified
CPT/HCPCS: 74183; A9581

== ENCOUNTER 2023-04-25 14:11 | Outpatient (AMB) | payer OTHER, SELFPAY ==
--- NOTE | 2023-04-25 14:15 | MHC.OFFWIV ---
Intake Vital Signs 04/25/23 14:16 Weight 160 lb BP 120/86 Blood Pressure Location Rt brachial Position Sitting Pulse 92 Pulse Source Pulse Oximeter Pulse Oximetry (%) 98 Oxygen Delivery Method Room Air Intake Visit Reasons: EST/neck/back pain Intake Note: Patient here for left sided neck pain, back pain and headache that started this morning. patient states she has had this in the past but never on this side. Patient Tobacco Use Status: Never used Tobacco Allergies topiramate [TOPIRAMATE] Allergy (Intermediate, Verified 04/25/23 14:17) CHEST PAIN/A-FIB/RESPIRATORY DISTRESS, palpitations aspirin [ASPIRIN] Allergy (Unknown, Verified 04/25/23 14:17) SWOLLEN EYES, eye swelling Do you need a note to return to daycare/school/sports/work: No HPI HPI Comments History of Present Illness Details 38-year-old female that presents with neck and shoulder pain. Patient woke up this morning and felt pain and stiffness in her neck. Denies fevers chills pain is primarily with lateral rotation to the right. PFSH Medical History Depression Hypoglycemia Insomnia Liver lesion Migraine Mild recurrent major depression Obesity (BMI 30-39.9) Vitamin B12 deficiency Vitamin D deficiency Surgical History (Updated 08/31/22 @ 10:41 by CRISS Echeverria) H/O bilateral salpingectomy History of 3 sections History of esophagogastroduodenoscopy (EGD) Hx of adenoidectomy Hx of colonoscopy Hx of tonsillectomy Family History Father HTN (hypertension) Mother Diabetes mellitus Fibromyalgia Heart disease Acute rheumatoid arthritis Uterine cancer CVD (cardiovascular disease) Maternal Grandmother Uterine cancer Alzheimer disease Mental health disorder Paternal Grandfather CVD (cardiovascular disease) Colon cancer Social History Housing: Apartment Alcohol intake: current Alcohol intake frequency: a few times a month Alcohol type: beer and wine Patient Tobacco Use Status: Never used Tobacco e-Cigarette/Vaping Use: Never Used Second Hand Smoke Exposure: No service: No Current occupational status: unemployed Gender identity: Female Cognitive needs: No Hearing needs: No Vision needs: No Female Reproductive History Menstrual Age of Menarche: 11 Review of Systems Const All systems reviewed & are unremarkable except as noted in HPI and below ENT Reports neck pain Musc Reports neck pain Physical Exam Vital Signs: Last Vital Signs Pulse 92 04/25/23 14:16 BP 120/86 04/25/23 14:16 Pulse Ox 98 04/25/23 14:16 Oxygen Delivery Method Room Air 04/25/23 14:16 Back/Spine/Pelvis Other: No midline tenderness to palpation. Pain with lateral rotation to right. Palpable knot in the trapezius Assessment & Plan Assessment & Plan (1) Neck pain: Code(s): M54.2 - Cervicalgia Plan No midline tenderness to palpation. Pain with lateral rotation to right. Palpable knot in the trapezius trigger point injection performed. Symptomatic treatment likely musculoskeletal. Discharge instructions, follow up and treatment are discussed with patient in my usual fashion. Alternatives in treatment are also discussed. The patient will return for worsening symptoms or as needed. Advised that any labs/imaging ordered will be followed up on and contact made if further treatment needed. Counseled that patient's condition may require further evaluation and/or treatment. Symptoms of concern for worsening disorder discussed in detail in my customary manner. Patient does verbalize understanding of the plan, there are no apparent barriers to communication. The patient is given the opportunity to ask questions and have them answered to his/her satisfaction Medications: New cyclobenzaprine 5 mg PO BEDTIME 7 tabs 0RF lidocaine 5% leave on most painful area for up to 12 hrs 1 patch topical DAILY 15 ea 0RF Coding Level of Care Code Est Pt Level 3 (22817) Diagnoses Neck pain M54.2
[2023-04-25 14:16] VITALS: BP 120/86; PULSE 92; O2SAT 98
== END 2023-04-25 15:08 | disposition home or self-care (01) ==
PROVIDERS: PCP Internal Medicine; Visit Provider Physician Assistant
DX: M54.2 Cervicalgia (principal)
CPT/HCPCS: 99213

== ENCOUNTER 2023-10-02 15:21 | Outpatient (AMB) | payer OTHER, SELFPAY ==
--- OUTSIDE RECORDS SUMMARY | 2023-10-02 15:22 | XMS_ITS | Continuity of Care Document ---
Author Name Unknown Organization [facility] Address [address] [place] [id number]- Care Team Providers Care Combatant Diver Qualified Name Role Phone Joe Boone MD, Veronica Soliman Primary Care Physician [place] [facility] [place]22[place]19 - 10/02/19 [facility] [address] [place] [id number] [facility] Attending Physician: Admtr, Ar8 Admitting Physician: Admtr, Ar8 Referring Physician: Admtr, Ar8 Allergies, Adverse Reactions, Alerts Substance Reaction Severity Status aspirin Active Medications Fioricet oral capsule 1 capsule, By Mouth, Every 4 hours, 0 Refills, Maintenance, 09/22/19 9:08:00 EST Start Date: 09/22/19 Status: Ordered Prena1 By Mouth, Daily, 0 Refills, Maintenance, 09/22/19 9:08:00 EST Start Date: 09/22/19 Status: Ordered Pyridoxine Daily, 0 Refills, Maintenance, 09/22/19 9:08:00 EST Start Date: 09/22/19 Status: Ordered Unisom = 25 mg, By Mouth, Daily, 0 Refills, Maintenance, 09/22/19 9:09:00 EST Start Date: 09/22/19 Status: Ordered Vitamin D 37390 iu oral capsule 50,000 International_Units, 1, capsule, By Mouth, Daily, Refills 0, Maintenance, 09/22/19 9:09:00 EST Start Date: 09/22/19 Status: Ordered Social History Social History Type Response Smoking Status Never (less than 100 in lifetime) entered on: 09/22/19 Sex
--- OUTSIDE RECORDS SUMMARY | 2023-10-02 15:22 | XMS_ITS | Continuity of Care Document ---
Author Name Unknown Organization [facility] Address [address] [place] [phone]- Care Team Providers Care Environmental Services Lead Name Role Phone Joe Boone MD, Ericka Soliman Primary Care Physician [phone] [place] [facility] [place] - 09/04/[address] [address]- Discharge Disposition: A-D/C Home Attending Physician: Shabnam Andersen MD Admitting Physician: Shabnam Andersen MD Referring Physician: Not on Staff, Referring MD Allergies, Adverse Reactions, Alerts Substance Reaction Severity [...] Start Date: 09/22/19 Status: Ordered Vitamin D 79305 iu oral capsule 50,000 International_Units, 1, capsule, By Mouth, Daily, Refills 0, Maintenance, 09/22/19 9:09:00 EST Start Date: 09/22/19 Status: Ordered Vital Signs Most recent to oldest [Reference Range]: 1 2 3 Oxygen Saturation [94-100 %] 99 % (09/04/21 12:01 AM) 98 % (09/03/21 8:18 PM) 100 % (09/03/21 6:37 PM) Pulse Rate [55-90 bpm] 86 bpm (09/04/21 12:01 AM) 95 bpm *H* (09/03/21 8:18 PM) 94 bpm *H* (09/03/21 6:37 PM) Blood Pressure [90-138/55-84 mm Hg] 130/88mm Hg (09/04/21 12:01 AM) 136/91mm Hg (09/03/21 8:18 PM) 144/107mm Hg *H* (09/03/21 6:37 PM) Respiratory Rate [16-30 br/min] 16 br/min (09/04/21 12:01 AM) 16 br/min (09/03/21 6:37 PM) 16 br/min (09/03/21 5:04 PM) Temperature [96.8-100.4 DegF] 98.1 DegF (09/04/21 12:01 AM) 97.8 DegF (09/03/21 8:18 PM) 97.8 DegF (09/03/21 6:37 PM) Mode of Delivery (Oxygen) Room air (09/04/21 12:01 AM) Room air (09/03/21 8:18 PM) Room air (09/03/21 6:37 PM) Blood pressure sites Arm, right (09/04/21 12:01 AM) Arm, right (09/03/21 8:18 PM) Arm, right (09/03/21 6:37 PM) Temperature Route Oral (09/04/21 12:01 AM) Oral (09/03/21 8:18 PM) Oral (09/03/21 6:37 PM) Social History Social History Type Response Smoking Status Never (less than 100 in lifetime) entered on: 09/22/19 Sex
--- NOTE | 2023-10-02 15:24 | MHC.OFFWIV ---
Intake Vital Signs 10/02/23 15:26 Height 5 ft 1 in Weight 156 lb BMI 29.5 BP 130/90 H Blood Pressure Location Lt brachial Position Sitting Pulse 98 Pulse Source Pulse Oximeter Temp 97.6 F Temp Source Temporal Artery Scan Pulse Oximetry (%) 98 Oxygen Delivery Method Room Air Intake Visit Reasons: EST/neck pain (lobby) Intake Note: pt is here today for neck pain started 2 days ago Patient Tobacco Use Status: Never used Tobacco Allergies topiramate [TOPIRAMATE] Allergy (Intermediate, Verified 10/02/23 15:28) CHEST PAIN/A-FIB/RESPIRATORY DISTRESS, palpitations aspirin [ASPIRIN] Allergy (Unknown, Verified 10/02/23 15:28) SWOLLEN EYES, eye swelling Do you need a note to return to daycare/school/sports/work: Yes HPI HPI Comments History of Present Illness Details This is a 38-year-old female with a past medical history of migraine headaches presenting for evaluation of left-sided neck pain that she woke up with approximately 2 days ago. Patient denies any injury or trauma preceding the onset of her symptoms. She describes the pain as an aching sensation which limits her range of motion. Patient has been taking Motrin 800 mg every 8 hours and using warm compresses without complete relief. Patient denies having any fevers, chills, visual changes, lightheadedness or difficulty swallowing. [facility] Medical History Liver lesion Mild recurrent major depression Obesity (BMI 30-39.9) Vitamin D deficiency Vitamin B12 deficiency Insomnia Depression Migraine Hypoglycemia Surgical History Hx of colonoscopy History of esophagogastroduodenoscopy (EGD) H/O bilateral salpingectomy Hx of adenoidectomy Hx of tonsillectomy History of 3 sections Family History Father HTN (hypertension) Mother Diabetes mellitus Fibromyalgia Heart disease Acute rheumatoid arthritis Uterine cancer CVD (cardiovascular disease) Maternal Grandmother Uterine cancer Alzheimer disease Mental health disorder Paternal Grandfather CVD (cardiovascular disease) Colon cancer Social History Housing: Apartment Alcohol intake: current Alcohol intake frequency: a few times a month Alcohol type: beer and wine Patient Tobacco Use Status: Never used Tobacco e-Cigarette/Vaping Use: Never Used Second Hand Smoke Exposure: No service: No Current occupational status: unemployed Gender identity: Female Cognitive needs: No Hearing needs: No Vision needs: No Female Reproductive History Menstrual Age of Menarche: 11 Review of Systems Const All systems reviewed & are unremarkable except as noted in HPI and below Reports no additional complaints, Denies chills and Denies fever(s) Eyes Reports no additional complaints ENT Reports neck pain Musc Reports no additional complaints and Reports neck pain Skin/Breast Reports system reviewed and no additional complaints, except as documented Physical Exam Vital Signs: Last Vital Signs Temp 97.6 F 10/02/23 15:26 Pulse 98 10/02/23 15:26 BP 130/90 H 10/02/23 15:26 Pulse Ox 98 10/02/23 15:26 Oxygen Delivery Method Room Air 10/02/23 15:26 BMI result Body Mass Index 29.5 Const General: cooperative, comfortable and no acute distress Nutritional Appearance: average body habitus Orientation/consciousness: patient oriented x3 Limitations: no limitations Eyes Pupils: Equal, round and reactive pupils present EOM: EOMs intact bilaterally Direct Ophthalmoscopy: normal light reflex Neck Neck: Yes normal visual inspection, No supple, No anterior neck swelling, Yes tender (left cervical paraspinous musculature extending to the SCM ) and No torticollis Lymphatic: no lymphadenopathy noted Back/Spine/Pelvis Cervical Spine: No cervical ROM normal, cervical muscular tenderness (left) and No Cervical spine tenderness Neuro General: patient oriented x3 Cranial nerves: Yes Equal, round and reactive pupils present Assessment & Plan Assessment & Plan (1) Neck pain: Comment: Given there was no injury or trauma, imaging is deferred at this time. Patient states that she has ibuprofen 800 mg at home and is agreeable to continue taking with the addition of a muscle relaxant. Code(s): M54.2 - Cervicalgia Plan: Continue ibuprofen 800 mg every 8 hours and initiate Robaxin every 8 hours as well. Warm compresses or a heating pad for 20 minute intervals. Medications: New methocarbamol 750 mg PO Q8H 20 tabs 0RF Coding Level of Care Code Est Pt Level 3 (73012) Diagnoses Neck pain M54.2 Time Spent (min) 20
[2023-10-02 15:26] VITALS: BP 130/90; PULSE 98; TEMP 36.4; O2SAT 98; BMI 29.5
== END 2023-10-02 15:39 | disposition home or self-care (01) ==
PROVIDERS: PCP Internal Medicine; Visit Provider Physician Assistant
DX: M54.2 Cervicalgia (principal)
CPT/HCPCS: 99213

== ENCOUNTER 2024-06-30 14:54 | Outpatient (AMB) | payer OTHER, SELFPAY ==
--- NOTE | 2024-06-30 15:01 | MHC.PC.OV ---
Vital Signs 06/30/24 15:07 Height 5 ft 1 in Weight 161 lb BMI 30.4 BP 122/70 Blood Pressure Location Lt brachial Position Sitting Intake Visit Reasons: Head aches Thermocouple Tester Required: No Accompanied by: Self / Same As Patient Allergies topiramate [TOPIRAMATE] Allergy (Intermediate, Verified 06/30/24 15:21) CHEST PAIN/A-FIB/RESPIRATORY DISTRESS, palpitations aspirin [ASPIRIN] Allergy (Unknown, Verified 06/30/24 15:21) SWOLLEN EYES, eye swelling Medication List - Last Reconciled 06/30/24 by Ericka Boone MD cholecalciferol (vitamin D3) 50 mcg PO DAILY ergocalciferol (vitamin D2) 1,250 mcg PO QWEEK 90 days ferrous sulfate 325 mg PO DAILY lidocaine 5% 1 patch topical DAILY methocarbamol 750 mg PO Q8H sertraline 25 mg PO DAILY sumatriptan succinate 50 mg PO ONCE 30 days Tobacco use date assessed: 06/30/24 HPI HPI Comments History of Present Illness Details This is a 39-year-old female with mild recurrent major depression, migraine, iron-deficiency anemia and low vitamin-D that comes today for follow-up on her conditions. Depression stable with SSRIs. Migraines happen few times per month. Will give her magnesium. Hemoglobin will be order and she admits not being compliant with ferrous sulfate. On vitamin-D supplements for her low vitamin-D in which levels will also be ordered. No chest pain or shortness on breath. [facility] Medical History (Updated 06/30/24 @ 17:31 by Ericka Boone MD) Liver lesion Mild recurrent major depression Obesity (BMI 30-39.9) Vitamin D deficiency Vitamin B12 deficiency Insomnia Depression Migraine Hypoglycemia Surgical History Hx of colonoscopy History of esophagogastroduodenoscopy (EGD) H/O bilateral salpingectomy Hx of adenoidectomy Hx of tonsillectomy History of 3 sections Family History Father HTN (hypertension) Mother Diabetes mellitus Fibromyalgia Heart disease Acute rheumatoid arthritis Uterine cancer CVD (cardiovascular disease) Maternal Grandmother Uterine cancer Alzheimer disease Mental health disorder Paternal Grandfather CVD (cardiovascular disease) Colon cancer Social History Housing: Apartment Alcohol intake: current Alcohol intake frequency: a few times a month Alcohol type: beer and wine Patient Tobacco Use Status: Never used Tobacco e-Cigarette/Vaping Use: Never Used Second Hand Smoke Exposure: No service: No Current occupational status: unemployed Gender identity: Female Cognitive needs: No Hearing needs: No Vision needs: No Female Reproductive History Menstrual Age of Menarche: 11 Questionnaire PHQ-9 Over the last 2 weeks, how often have you been bothered by any of the following problems? 1. Little interest or pleasure in doing things: not at all 2. Feeling down, depressed, or hopeless: not at all 3. Trouble falling or staying asleep, or sleeping too much: not at all 4. Feeling tired or having little energy: not at all 5. Poor appetite or overeating: not at all 6. Feeling bad about yourself - or that you are a failure or have let yourself or your family down: not at all 7. Trouble concentrating on things, such as reading the newspaper or watching television: not at all 8. Moving or speaking so slowly that other people could have noticed. Or the opposite - being so fidgety or restless that you have been moving around a lot more than usual: not at all 9. Thoughts that you would be better off or of hurting yourself in some way: not at all Total score: 0 Depression Screening Interpretation: Negative Depression Screening Done: Yes 02351 - PHQ-9 Billing: Yes Source: Developed by Drs. Michael Mcgraw, Yashira Kay, Teddy Santamaria and colleagues, with an educational bjorn from [employer]. Thrive Questionnaire Date Thrive assessed: 06/30/24 I am a: Patient What is your living situation today?: I have a steady place to live Within the past 12 months, did the food you bought not last and you didn't have the money to get more?: Never true Within the past 12 months, did you worry whether your food would run out before you got money to buy more?: Never true Do you have trouble paying for medicines?: No Do you have trouble getting transportation to medical appointments?: No Do you have trouble paying your heating and electricity bill?: No Do you have trouble taking care of your child, family member or friend?: No Do you have trouble with day-to-day activities such as bathing, preparing meals, shopping, managing finances, etc.?: No Are you currently unemployed and looking for a job?: No Are you interested in more education?: No Please select the resources that you would like help with: None Currently or been in a relationship where the following occur: No concerns reported THRIVE Score: 0 AUDIT C Alcohol Use Questionnaire (AUDIT-C) 1. How often do you have a drink containing alcohol?: Monthly or less 2. How many drinks containing alcohol do you have on a typical day when you are drinking?: 1 or 2 3. How often do you have six or more drinks on one occasion?: Never Total Score: 1 Score Reviewed/Action Taken: No DAYO-7 AMB Questionnaire DAYO-7 Date DAYO - 7 assessed: 06/30/24 Feeling nervous, anxious, or on edge: 0 = Not at all Not being able to stop or control worryin = Not at all Worrying too much about different things: 0 = Not at all Trouble relaxin = Not at all Being so restless that it is hard to sit still: 0 = Not at all Becoming easily annoyed or irritable: 0 = Not at all Feeling afraid as if something awful might happen: 0 = Not at all Total DAYO-7 score (0-4 normal; 5-9 mild; 10-14 moderate; 15-21 severe): 0 Source: Developed by Drs. Michael Mcgraw, Yashira Kay, Teddy Santamaria and colleagues, with an educational bjorn from [employer]. DAYO-7 Assessment Billing DAYO-7 Assessment Tool: DAYO-7 Assessment 71454 Review of Systems Const All systems reviewed & are unremarkable except as noted in HPI and below Card Denies chest pain at rest, Denies chest pain with activity, Denies edema, Denies irregular heart rhythm, Denies claudication, Denies dyspnea, Denies dyspnea on exertion, Denies orthopnea, Denies paroxysmal nocturnal dyspnea and Denies slow heart rate Resp Denies cough, Denies dyspnea and Denies dyspnea on exertion GI Denies abdominal pain, Denies change in bowel habits, Denies excessive flatus, Denies nausea and Denies vomiting Physical exam (Primary Care) Vital Signs: Last Vital Signs BP 122/70 06/30/24 15:07 BMI result Body Mass Index 30.4 BMI Assessment/Plan discussion: High BMI High, discussed plan: lifestyle, weight reduction, dietary and physical activity Tobacco/Smoking Status: Tobacco use Status Tobacco use date assessed 06/30/24 06/30/24 15:09 Patient Tobacco Use Status Never used Tobacco 06/30/24 15:09 e-Cigarette/Vaping Use Never Used 06/30/24 15:09 PHQ-9: PHQ-9 Score PHQ-9: Total score 0 06/30/24 15:27 Depression Screening Interpretation: Negative Thrive Assessment: Date of Thrive Assessment Date Thrive assessed 06/30/24 06/30/24 15:09 Currently or been in a relationship where the following occur: No concerns reported Resp Effort & Inspection: normal respiratory effort Auscultation: clear to auscultation bilaterally Cardio Jugular venous distension: no JVD Rate: regular rate Rhythm: regular rhythm Heart sounds: S1 normal heart sound present and S2 normal heart sound present Extrem General: Yes full ROM Office Procedures Flu Questionnaire Does the patient have a severe egg allergy?: No Immunizations Fluarix Triv [id number] (PF) 45 mcg (15 mcg x 3)/0.5 mL IM syringe Performing Provider: Ericka Boone MD [facility] Documented (not given) by: CRISS Cain on 06/30/24 15:10 Reason Not Given: Patient Refused Coding Level of Care Code Est Pt Level 4 (22650) Complex EM visit Add On G2211 Diagnoses Mild recurrent major depression F33.0 Migraine G43.909 Vitamin D deficiency E55.9 Iron deficiency anemia due to chronic blood loss D50.0 Additional Codes DAYO-7 Assessment Billing - DAYO-7 Assessment Tool: DAYO-7 Assessment 02489 ([id number]) PHQ-9 - 45711 - PHQ-9 Billing: Yes ([id number]) Time Spent (min) 22 Assessment & Plan Assessment & Plan (1) Mild recurrent major depression: Code(s): F33.0 - Major depressive disorder, recurrent, mild Category: Medical Plan: Continue SSRIs. (2) Migraine: Code(s): G43.909 - Migraine, unspecified, not intractable, without status migrainosus Category: Medical Plan: Continue sumatriptan as needed. (3) Vitamin D deficiency: Code(s): E55.9 - Vitamin D deficiency, unspecified Category: Medical Plan: Continue vitamin-D supplements. (4) Iron deficiency anemia due to chronic blood loss: Code(s): D50.0 - Iron deficiency anemia secondary to blood loss (chronic) Category: Medical Plan: Repeat hemoglobin. Continue ferrous sulfate. Orders: Orders Influenza [id number] Immunization Today Z23 - Encounter for immunization IRON PROFILE Today D64.9 - Anemia, unspecified Lipid Panel Today E78.5 - Hyperlipidemia, unspecified Vitamin D 25-OH Total Today E55.9 - Vitamin D deficiency, unspecified Complete Blood Count Auto Diff Today D64.9 - Anemia, unspecified Comprehensive Met. Panel Today M54.2 - Cervicalgia Medications: New magnesium oxide 400 mg PO DAILY 90 tabs 0RF 90 days
[2024-06-30 15:07] VITALS: BP 122/70; BMI 30.4
== END 2024-06-30 15:32 | disposition home or self-care (01) ==
LOC: HO.HMCH 14:55
PROVIDERS: PCP Internal Medicine; Visit Provider Internal Medicine
DX: F33.0 Major depressive disorder, recurrent, mild (principal); G43.909 Migraine, unspecified, not intractable, without status migrainosus; E55.9 Vitamin D deficiency, unspecified; D50.0 Iron deficiency anemia secondary to blood loss (chronic); Z23 Encounter for immunization

== ENCOUNTER → 2024-06-30 14:54 | Outpatient (BNVA) | payer OTHER, SELFPAY | PROVIDERS: PCP Internal Medicine; Visit Provider Internal Medicine | DX: F33.0 Major depressive disorder, recurrent, mild (principal); G43.909 Migraine, unspecified, not intractable, without status migrainosus; E55.9 Vitamin D deficiency, unspecified; D50.0 Iron deficiency anemia secondary to blood loss (chronic) | CPT/HCPCS: 90471; 96127; 99212 ==

== ENCOUNTER 2025-05-06 17:06 | Outpatient (AMB) | payer OTHER, SELFPAY ==
[2025-05-06 17:12] VITALS: BP 142/90; PULSE 87; RESP 18; TEMP 36.3; O2SAT 97; BMI 32.5
--- NOTE | 2025-05-06 17:12 | A.OFFPC_ITS ---
Vital Signs 05/06/25 17:12 Height 5 ft 1 in Weight 172 lb 4 oz BMI 32.5 BP 142/90 H Blood Pressure Location Lt brachial Position Sitting Respiration 18 Pulse 87 Pulse Source Pulse Oximeter Temp 97.3 F Temp Source Temporal Artery Scan Pulse Oximetry (%) 97 Oxygen Delivery Method Room Air Intake Visit Reasons: annual exam Qa Auditor Required: No Accompanied by: Self / Same As Patient Allergies topiramate (TOPIRAMATE) Allergy (Intermediate, Verified 05/06/25 17:21) CHEST PAIN/A-FIB/RESPIRATORY DISTRESS, palpitations aspirin (ASPIRIN) Allergy (Unknown, Verified 05/06/25 17:21) SWOLLEN EYES, eye swelling Medication List - Last Reconciled 05/06/25 by Ericka Boone MD cholecalciferol (vitamin D3) 50 mcg PO DAILY ergocalciferol (vitamin D2) 1,250 mcg PO QWEEK 90 days ferrous sulfate 325 mg PO DAILY magnesium oxide 400 mg PO DAILY 90 days sumatriptan succinate 50 mg PO ONCE 30 days Tobacco use date assessed: 05/06/25 Dental Screening Dental Screen Date: 05/06/25 Did you have a dental visit in the last 12 months?: No Did you have a dental problem in the last 6 months where you did not have access to dental care?: No Was dental information given to patient?: No HPI HPI Comments History of Present Illness Details This is a 40-year-old female that comes for her physical exam. Tdap vaccine up-to-date. Pap smear up-to-date. Will order mammogram. She has elevated blood pressure that will be recheck in 3 weeks by nurse navigator. [facility] Medical History (Updated 05/06/25 @ 17:32 by Ericka Boone MD) Liver lesion Mild recurrent major depression Obesity (BMI 30-39.9) Vitamin D deficiency Vitamin B12 deficiency Insomnia Depression Migraine Hypoglycemia Surgical History Hx of colonoscopy History of esophagogastroduodenoscopy (EGD) H/O bilateral salpingectomy Hx of adenoidectomy Hx of tonsillectomy History of 3 sections Family History Father HTN (hypertension) Mother Diabetes mellitus Fibromyalgia Heart disease Acute rheumatoid arthritis Uterine cancer CVD (cardiovascular disease) Maternal Grandmother Uterine cancer Alzheimer disease Mental health disorder Paternal Grandfather CVD (cardiovascular disease) Colon cancer Social History Housing: Apartment Alcohol intake: current Alcohol intake frequency: a few times a month Alcohol type: beer and wine Patient Tobacco Use Status: Never used Tobacco e-Cigarette/Vaping Use: Never Used Second Hand Smoke Exposure: No service: No Current occupational status: unemployed Gender identity: Female Cognitive needs: No Hearing needs: No Vision needs: No Female Reproductive History Menstrual Age of Menarche: 11 Questionnaire PHQ-9 Over the last 2 weeks, how often have you been bothered by any of the following problems? 1. Little interest or pleasure in doing things: not at all 2. Feeling down, depressed, or hopeless: not at all 3. Trouble falling or staying asleep, or sleeping too much: several days 4. Feeling tired or having little energy: several days 5. Poor appetite or overeating: not at all 6. Feeling bad about yourself - or that you are a failure or have let yourself or your family down: not at all 7. Trouble concentrating on things, such as reading the newspaper or watching television: not at all 8. Moving or speaking so slowly that other people could have noticed. Or the opposite - being so fidgety or restless that you have been moving around a lot more than usual: not at all 9. Thoughts that you would be better off or of hurting yourself in some way: not at all Total score: 2 Depression Screening Interpretation: Negative Depression Screening Done: Yes 74935 - PHQ-9 Billing: Yes Source: Developed by Drs. Michael Mcgraw, Yashira Kay, Teddy Santamaria and colleagues, with an educational bjorn from [employer]. Thrive Questionnaire Date Thrive assessed: 05/06/25 I am a: Patient What is your living situation today?: I have a steady place to live Within the past 12 months, did the food you bought not last and you didn't have the money to get more?: Never true Within the past 12 months, did you worry whether your food would run out before you got money to buy more?: Sometimes True Do you have trouble paying for medicines?: No Do you have trouble getting transportation to medical appointments?: No Do you have trouble paying your heating and electricity bill?: Yes Do you have trouble taking care of your child, family member or friend?: Yes Do you have trouble with day-to-day activities such as bathing, preparing meals, shopping, managing finances, etc.?: No Are you currently unemployed and looking for a job?: No Are you interested in more education?: No Please select the resources that you would like help with: None Currently or been in a relationship where the following occur: No concerns reported THRIVE Score: 2 AUDIT C Alcohol Use Questionnaire (AUDIT-C) 1. How often do you have a drink containing alcohol?: Monthly or less 2. How many drinks containing alcohol do you have on a typical day when you are drinking?: 1 or 2 3. How often do you have six or more drinks on one occasion?: Never Total Score: 1 Score Reviewed/Action Taken: No DAYO-7 AMB Questionnaire DAYO-7 Date DAYO - 7 assessed: 05/06/25 Feeling nervous, anxious, or on edge: 0 = Not at all Not being able to stop or control worryin = Several days Worrying too much about different things: 1 = Several days Trouble relaxin = Several days Being so restless that it is hard to sit still: 0 = Not at all Becoming easily annoyed or irritable: 0 = Not at all Feeling afraid as if something awful might happen: 1 = Several days Total DAYO-7 score (0-4 normal; 5-9 mild; 10-14 moderate; 15-21 severe): 4 Source: Developed by Drs. Michael Mcgraw, Yashira Kay, Teddy Santamaria and colleagues, with an educational bjorn from [employer]. DAYO-7 Assessment Billing DAYO-7 Assessment Tool: DAYO-7 Assessment 56248 Review of Systems Const All systems reviewed & are unremarkable except as noted in HPI and below Card Denies chest pain at rest, Denies chest pain with activity, Denies edema, Denies irregular heart rhythm, Denies claudication, Denies dyspnea, Denies dyspnea on exertion, Denies orthopnea, Denies paroxysmal nocturnal dyspnea and Denies slow heart rate Resp Denies cough, Denies dyspnea and Denies dyspnea on exertion Physical exam (Primary Care) Vital Signs: Last Vital Signs Resp 18 05/06/25 17:12 Oxygen Delivery Method Room Air 05/06/25 17:12 Tobacco/Smoking Status: Tobacco use Status Tobacco use date assessed 06/30/24 06/30/24 15:09 Patient Tobacco Use Status Never used Tobacco 06/30/24 15:09 e-Cigarette/Vaping Use Never Used 06/30/24 15:09 Depression Screening Interpretation: Negative Thrive Assessment: Date of Thrive Assessment Date Thrive assessed 04/30/25 04/30/25 08:25 Currently or been in a relationship where the following occur: No concerns reported HENMT Head: Yes normal to inspection, Yes normocephalic and Yes atraumatic Ears: external ears normal Eyes General: appearance normal, both eyes and all related structures Eyelids: Yes eyelids normal Conjunctivae: conjunctivae normal Neck Neck: Yes normal visual inspection and Yes supple Resp Effort & Inspection: normal respiratory effort Auscultation: clear to auscultation bilaterally Cardio Jugular venous distension: no JVD Rate: regular rate Rhythm: regular rhythm Heart sounds: S1 normal heart sound present and S2 normal heart sound present GI Inspection: Yes normal to inspection Palpation (GI): Soft to palpation and nontender Auscultation: normal bowel sounds Skin General skin exam: no rashes or lesions noted Neuro General: no focal motor deficits Extrem General: Yes full ROM Psych Appearance: grossly normal Coding Level of Care Code Est Pt Level 3 (07456) Est Pt Prev Care 40-64y(87055) Diagnoses Physical exam Z00.00 Weight gain R63.5 Additional Codes PHQ-9 - 87229 - PHQ-9 Billing: Yes ([id number]) DAYO-7 Assessment Billing - DAYO-7 Assessment Tool: DAYO-7 Assessment 59519 ([id number]) Time Spent (min) 33 Assessment & Plan Assessment & Plan (1) Physical exam: Code(s): Z00.00 - Encounter for general adult medical examination without abnormal findings Category: Medical (2) Weight gain: Code(s): R63.5 - Abnormal weight gain Category: Medical Plan Labs ordered. Mammogram ordered. Orders: Orders Vitamin D 25-OH Total Today E55.9 - Vitamin D deficiency, unspecified IRON PROFILE Today D64.9 - Anemia, unspecified Lipid Panel Today E78.5 - Hyperlipidemia, unspecified Thyroid Stimulating Hormone Today R63.5 - Abnormal weight gain Comprehensive [place]. Panel Fast Today R63.5 - Abnormal weight gain Estrogen Today R63.5 - Abnormal weight gain MM tomosynthesis screening BI Today Z12.31 - Encounter for screening mammogram for malignant neoplasm of breast Complete Blood Count Auto Diff Today D64.9 - Anemia, unspecified Saliva Cortisol Today R63.5 - Abnormal weight gain Progesterone Today R63.5 - Abnormal weight gain
== END 2025-05-06 17:32 | disposition home or self-care (01) ==
LOC: HO.HMCH 17:07
PROVIDERS: PCP Internal Medicine; Visit Provider Internal Medicine
DX: Z00.00 Encounter for general adult medical examination without abnormal findings (principal); R63.5 Abnormal weight gain

== ENCOUNTER → 2025-05-06 17:06 | Outpatient (BNVA) | payer OTHER, SELFPAY | PROVIDERS: PCP Internal Medicine; Visit Provider Internal Medicine | DX: Z00.01 Encounter for general adult medical examination with abnormal findings (principal); R63.5 Abnormal weight gain; Z13.31 Encounter for screening for depression; Z13.39 Encounter for screening examination for other mental health and behavioral disorders | CPT/HCPCS: 96127; 99212; 99396 ==

== ENCOUNTER → 2025-05-21 13:12 | Outpatient (BNVA) | payer OTHER, SELFPAY | PROVIDERS: PCP Internal Medicine | DX: Z01.30 Encounter for examination of blood pressure without abnormal findings (principal) | CPT/HCPCS: 99211 ==

== ENCOUNTER 2025-06-11 10:22 | Outpatient (REF) | payer OTHER, SELFPAY ==
[2025-06-11 11:10] LABS: MANUAL DIFF FLAG NO
[2025-06-11 11:49] LABS: Hematocrit 33.6 % (37.0-47.0); Hemoglobin 10.2 g/dl (12.0-16.0); Imm Gran Abs Auto 0.01 X10*3/uL (0.00-0.03); Imm Gran Pct Auto 0.2 % (0.0-0.4); Lymphocytes Absolute Auto 1.6 X10*3/uL (1.2-4.9); Mean Corpuscular HGB Conc 30.4 g/dl (31.0-35.0); Mean Corpuscular Hemoglobin 22.3 pg (27.0-33.0); Mean Corpuscular Volume 73.5 fL (80.0-98.0); NRBC Abs Auto 0.000 X10*3/uL (0.0-0.012); NRBC Pct Auto 0.0 /100WBC (0.0-0.2); Platelet Count 291 X10*3/uL (160-400); Red Blood Count 4.57 X10*6/uL (4.20-5.50); White Blood Count 5.5 X10*3/uL (4.8-10.8)
[2025-06-11 13:47] LABS: Alanine Aminotransferase 86 U/L (0-31); Albumin Level 4.5 g/dL (3.5-5.0); Alkaline Phosphatase 134 U/L (39-117); Anion Gap 11 (12-20); Aspartate Amino Transferase 66 U/L (5-31); Blood Urea Nitrogen 7 mg/dL (9-16); Calcium 9.0 mg/dL (8.4-10.2); Carbon Dioxide 23 mmol/L (22-29); Chloride 109 mmol/L (96-108); Cholesterol 195 mg/dL (<200); Estimated Glomerular Filt Rate > 60; HDL Cholesterol 36 mg/dL (>40); Iron 29 mcg/dL (30-160); Percent Iron Saturation 7 % (15-50); Potassium 3.8 mmol/L (3.3-5.1); Sodium 139 mmol/L (135-145); Total Iron Binding Capacity 439 mcg/dL (228-428); Total Protein 7.4 g/dL (6.5-8.0); Triglycerides 289 mg/dL (<150); Unsaturated Iron Binding 410 ug/dL
[2025-06-11 14:17] LABS: Thyroid Stimulating Hormone 0.75 uIU/mL (0.32-4.0)
== END 2025-06-11 10:23 | disposition home or self-care (01) ==
LOC: HO.LAB 10:22
PROVIDERS: PCP Internal Medicine; Visit Provider Internal Medicine
DX: Z01.30 Encounter for examination of blood pressure without abnormal findings (principal); E55.9 Vitamin D deficiency, unspecified; R63.5 Abnormal weight gain; D64.9 Anemia, unspecified; E78.5 Hyperlipidemia, unspecified
CPT/HCPCS: 36415; 80053; 80061; 82306; 82672; 83540; 84144; 84443; 85025; 99211